=== PATIENT | male | born 1960 | race Caucasian/White ===

== ENCOUNTER 2020-12-22 18:02 | Emergency (ER) | payer OTHER ==
[2020-12-22 18:15] VITALS: RESP 18; TEMP 97.9
[2020-12-22] MEDS ORDERED: LIDOCAINE 1%-EPI 1:100,000 20 ML VIAL SQ STA (18:32)
--- NOTE | 2020-12-22 19:09 | XR ---
EXAMINATION TYPE: XR knee complete RT DATE OF EXAM: 12/22/2020 COMPARISON: 4 views HISTORY: Knee pain TECHNIQUE: 3 views FINDINGS: I see no fracture nor dislocation. Joint spaces are normal. There is no sign of knee joint effusion. There is some vascular calcification. IMPRESSION: No acute abnormality of the right knee.
--- NOTE | 2020-12-22 21:13 | ED ---
General Adult HPI - General Chief complaint: Wound/Laceration Stated complaint: R Knee laceration Time Seen by Provider: 12/22/20 18:19 Source: patient Mode of arrival: wheelchair Limitations: no limitations - History of Present Illness Initial comments: 60-year-old male presents to the emergency room for a chief complaint of laceration of the right knee. Patient was using a blade to cut a piece of wood and he cut his right knee. Patient is up-to-date on tetanus as of 4 years ago. Patient denies any difficulty bending his knee. Patient denies any difficulty ambulating. Patient states he is on Coumadin and is bleeding a little bit.Patient has no other complaints at this time including shortness of breath, chest pain, abdominal pain, nausea or vomiting, headache, or visual changes. - Related Data Allergies Allergy/AdvReac Type Severity Reaction Status Date / Time adhesive tape Allergy Rash/Hives Verified 12/22/20 18:15 codeine AdvReac Confusion Verified 12/22/20 18:15 Review of Systems ROS Statement: Those systems with pertinent positive or pertinent negative responses have been documented in the HPI. ROS Other: All systems not noted in ROS Statement are negative. Past Medical History Past Medical History: Cancer, Hypertension Additional Past Medical History / Comment(s): esophageal verices; testicular cancer, anti-thrombin 3, pericarditis History of Any Multi-Drug Resistant Organisms: None Reported Past Surgical History: Back Surgery, Bowel Resection, Orthopedic Surgery Additional Past Surgical History / Comment(s): left hip replacement, Past Psychological History: No Psychological Hx Reported Smoking Status: Former smoker Past Alcohol Use History: Rare Past Drug Use History: None Reported General Exam Limitations: no limitations General appearance: alert, in no apparent distress Head exam: Present: atraumatic, normocephalic, normal inspection Eye exam: Present: normal appearance, PERRL, EOMI. Absent: scleral icterus, conjunctival injection, periorbital swelling ENT exam: Present: normal exam, mucous membranes moist Neck exam: Present: normal inspection. Absent: tenderness, meningismus, lymphadenopathy Respiratory exam: Present: normal lung sounds bilaterally. Absent: respiratory distress, wheezes, rales, rhonchi, stridor Cardiovascular Exam: Present: regular rate, normal rhythm, normal heart sounds. Absent: systolic murmur, diastolic murmur, rubs, gallop, clicks GI/Abdominal exam: Present: soft, normal bowel sounds. Absent: distended, tenderness, guarding, rebound, rigid Extremities exam: Present: full ROM (Full range of motion of the right knee.), normal capillary refill (cap refill less than 2 seconds, DP pulse 2+.), other (Patient has a 4 cm laceration just proximal to the anterior right knee.). Absent: tenderness, pedal edema, joint swelling, calf tenderness Course Vital Signs 12/22/20 18:10 Temperature 97.9 F Pulse Rate 102 H Respiratory 18 Rate Blood Pressure 116/76 O2 Sat by Pulse 96 Oximetry Procedures - Laceration Laceration #1 Consent Obtained: verbal consent Indication: laceration Site: lower extremity Size (cm): 4 Description: linear Depth: simple, single layer Anesthetic Used: lidocaine 1%, with epi Anesthesia Technique: local infiltration Amount (mls): 10 Pre-repair: wound explored, irrigated extensively Type of Sutures: nylon Size of Sutures: 5-0 Number of Sutures: 10 Technique: simple, interrupted Patient Tolerated Procedure: well Additional Comments: Patient did have some minor bleeding. I did attempt to put a figure 8 stitch however was unable to tie off the bleed. I suspect it is from a hematoma that ruptured after I injected the lidocaine. Pressure dressing was applied and bleeding did cease. Medical Decision Making - Medical Decision Making X-ray of the right knee shows no acute abnormality. Wound was irrigated. 10 sutures were applied. There is a small bleed that I was unable to tie off, I suspect it is from a hematoma that ruptured after I injected lidocaine. Pressure dressing was applied. There is no bleeding through the pressure dressing. Patient will be discharged to follow up with primary care. I discussed her to return parameters for suture removal as well as for monitoring infection. Disposition Clinical Impression: Laceration Disposition: HOME SELF-CARE Condition: Good Instructions (If sedation given, give patient instructions): Laceration (ED) Additional Instructions: Take antibiotics as directed. Keep wound clean with gentle soap and water. Return in 10-14 days for suture removal. Return earlier for any worsening symptoms such as signs of infection like spreading or streaking redness, drainage, or fever. Otherwise follow-up with primary care. Is patient prescribed a controlled substance at d/c from ED?: No Referrals: Nonstaff,Physician [Primary Care Provider] - 1-2 days Time of Disposition: 21:12
[2020-12-22] MEDS ORDERED: CEPHALEXIN 500MG STARTER PACK 4 CAP BTL PO STA (21:14)
[2020-12-22 21:39] VITALS: BP 128/68; PULSE 72
== END 2020-12-22 21:39 | disposition home or self-care (01) ==
LOC: EC 18:02
DX: S81.011A Laceration without foreign body, right knee, initial encounter (principal); I10 Essential (primary) hypertension; Z88.5 Allergy status to narcotic agent; Z91.09 Other allergy status, other than to drugs and biological substances; Z87.891 Personal history of nicotine dependence; W26.8XXA Contact with other sharp object(s), not elsewhere classified, initial encounter; Y93.89 Activity, other specified; Z79.01 Long term (current) use of anticoagulants
CPT/HCPCS: 12002; 99282